=== PATIENT | male | born 1975 | race Caucasian/White ===

== ENCOUNTER 2024-08-17 08:17 | Day surgery (SDC) | payer BC ==
[2024-08-17] MEDS: Lactated Ringers 1,000 ML IV SCH (08:36)
[2024-08-17] MEDS ORDERED: Ketamine 200 MG/20 ML MDV ONE (08:40)
[2024-08-17] MEDS ORDERED: Propofol 200 MG/20 ML SDV ONE (08:40)
[2024-08-17] MEDS ORDERED: fentaNYL 50 MCG/ML SDV ONE ×2 (08:40)
[2024-08-17] MEDS ORDERED: Midazolam 1 MG/ML 2 ML SDV ONE (08:40)
== END 2024-08-17 10:15 | disposition home or self-care (01) ==
LOC: CC.SDS 08:17
PROVIDERS: ATTEND Family Medicine
DX: Z12.11 Encounter for screening for malignant neoplasm of colon (principal); K57.30 Diverticulosis of large intestine without perforation or abscess without bleeding; M10.9 Gout, unspecified; E66.9 Obesity, unspecified; Z68.38 Body mass index [BMI] 38.0-38.9, adult; G47.33 Obstructive sleep apnea (adult) (pediatric)
CPT/HCPCS: 00812; J2250; J2704; J3010; J3490; J7120